=== PATIENT | male | born 1935 | race African-American/Black ===

== ENCOUNTER 2021-12-24 11:50 | Emergency (ER) | payer MEDICARE ==
[~2021-12-24] VITALS: Ht 182.9 cm; Wt 75.9 kg
[2021-12-24] MEDS ORDERED: CEPHALEXIN500 M1 PO (14:25)
[2021-12-24 14:34] VITALS: BP 113/69; PULSE 73; TEMP 97.3
== END 2021-12-24 14:45 | disposition home or self-care (01) ==
LOC: COL.ER 11:50
DX: L02.511 Cutaneous abscess of right hand (principal); Z87.891 Personal history of nicotine dependence